=== PATIENT | female | born 1985 | race Caucasian/White ===

== ENCOUNTER 2017-07-14 06:40 | Emergency (ER) | payer MEDICAID, OTHER ==
[~2017-07-14] VITALS: Ht 160 cm; Wt 64.0 kg
[~2017-07-14 06:40] MED LIST: LORTA5 PO; PREN0.01 PO; ZOFR4TAB3 SL
[2017-07-14 06:44] VITALS: BP 129/63; PULSE 74; RESP 16; TEMP 97.9; O2SAT 100
--- NOTE | 2017-07-14 07:27 | PD ---
HPI Chief Complaint: Flank/Kidney Pain Time Seen by Provider: 07:24 Travel History International Travel<30 days: No Contact w/Intl Traveler<30days: No Traveled to known affect area: No History of Present Illness HPI 32-year-old female patient with history of UTI for the last week and a half, has had anthrax treatment including amoxicillin and Cipro which have not worked , and states that her primary care doctor had prescribed Bactrim but she has not yet taken it. She presents to the ER today because she is feeling worse, suprapubic discomfort, nausea, feels like is radiating to her left flank. She denies any fevers, vomiting, diarrhea, or other symptoms. Modifying Factors: None Associated Signs & Symptoms: Suprapubic discomfort, nausea, left flank pain Risk Factors: Recent UTIs PFSH Past Medical History Diabetes: No Diminished Hearing: No Reproductive: Yes (OVARIAN CYSTS) Immunizations Current: No ?: Not LMP: 12-9-17 : 6 Para: 3 Miscarriage: 1 : 1 Ovarian Cysts: Yes Dilation and Curettage (D&C): Yes Past Surgical History Genitourinary Surgery: Yes (4 ABORTIONS) Gynecologic Surgery: Yes (D&C-2006) Social History Alcohol Use: No Tobacco Use: No Substance Use: No Allergies-Medications (Allergen,Severity, Reaction): Coded Allergies: No Known Allergies (Verified Adverse Reaction, Unknown, 07/14/17) Reported Meds & Prescriptions Reported Meds & Active Scripts Active Review of Systems Except as stated in HPI: all other systems reviewed are Neg Physical Exam Narrative GENERAL: Well-developed young female patient currently in mild distress. Awake and oriented 3. SKIN: Focused skin assessment warm/dry. HEAD: Atraumatic. Normocephalic. EYES: Pupils equal and round. No scleral icterus. No injection or drainage. ENT: No nasal bleeding or discharge. Mucous membranes pink and moist. NECK: Trachea midline. No JVD. CARDIOVASCULAR: Regular rate and rhythm. No murmur appreciated. RESPIRATORY: No accessory muscle use. Clear to auscultation. Breath sounds equal bilaterally. GASTROINTESTINAL: Abdomen soft, mild suprapubic tenderness without guarding or rebound, nondistended. Hepatic and splenic margins not palpable. BACK: No CVA tenderness. No rash. No point tenderness on palpation of the spine. MUSCULOSKELETAL: No obvious deformities. No clubbing. No cyanosis. No edema. NEUROLOGICAL: Awake and alert. No obvious cranial nerve deficits. Motor grossly within normal limits. Normal speech. PSYCHIATRIC: Appropriate mood and affect; insight and judgment normal. Data Data Last Documented VS Vital Signs Date Time Temp Pulse Resp B/P (MAP) Pulse Ox O2 Delivery O2 Flow Rate FiO2 07/14/17 06:44 97.9 74 16 129/63 (85) 100 Orders Orders Urinalysis - C+S If Indicated (07/14/17 06:50) Ed Urine Pregnancytest Poc (07/14/17 07:24) Ct Abd/Pel W/O Iv Contrast (07/14/17 07:47) Labs Laboratory Tests Test 07/14/17 06:50 Urine Color LIGHT-YELLOW Urine Turbidity CLEAR Urine pH 5.0 Urine Specific [place] 1.012 Urine Protein NEG mg/dL Urine Glucose (UA) NEG mg/dL Urine Ketones NEG mg/dL Urine Occult Blood NEG Urine Nitrite NEG Urine Bilirubin NEG Urine Urobilinogen LESS THAN 2.0 MG/DL Urine Leukocyte Esterase NEG Urine WBC 1 /hpf Urine Squamous Epithelial Cells 1 /hpf Urine Mucus FEW /lpf Microscopic Urinalysis Comment CULT NOT INDICATED MDM Medical Decision Making Medical Screen Exam Complete: Yes Emergency Medical Condition: Yes Medical Record Reviewed: Yes Interpretation(s) Laboratory Tests Test 07/14/17 06:50 Urine Mucus FEW /lpf (OCC) Last 24 hours Impressions Abdomen/Pelvis CT 07/14/17 0828 Signed Impressions: Service Date/Time: July 08:30 - CONCLUSION: Chronic changes of L4-5 facet on the left otherwisotherwise unremarkable. lillian Carias MD Differential Diagnosis UTI versus pyelonephritis versus renal colic Narrative Course Abdomen is benign. CAT scan did not show any signs of acute intra-abdominal processes or kidney stones. UA did not show UTI. At this point, I suspect this is more likely to be a muscular flank discomfort. She does have some L4-5 left facet joints findings with could be causing some irritation. My plan would be to give her symptomatic relief or pain and follow-up with primary care doctor. Return for any worsening in pain or new symptoms as needed. The plan has been discussed with her and she states understanding. Diagnosis Primary Impression: Left flank pain Med/Other Pt SpecificInfo: Prescription(s) given Scripts Tramadol (Tramadol) 50 Mg Tab 50 MG PO Q6H Y for PAIN, #15 TAB 0 Refills Prov: Alcira Priest MD 07/14/17 Disposition: 01 DISCHARGE HOME Condition: Stable Alcira Pirest MD Jul 14, 2017 07:27
[2017-07-14 07:44] LABS: BILIRUBIN, URINE NEG (NEG); BLOOD, URINE NEG (NEG); GLUCOSE,URINE NEG (NEG); KETONE, URINE NEG (NEG); MUCUS URINE FEW /lpf (OCC); NITRITE,URINE NEG (NEG); SQUAMOUS EPITHELIAL CELL URINE 1 /hpf (0-5); URINE COLOR LIGHT-YELLOW (YELLW/STRAW); URINE LEUKOCYTE ESTERASE NEG (NEG)
--- NOTE | 2017-07-14 09:13 | RADRPT ---
EXAM DATE/TIME: 07/14/2017 08:30 [facility] COMPARISON: No previous studies available for comparison. INDICATIONS : Flank pain ORAL CONTRAST: No oral contrast ingested. RADIATION DOSE: 5.42 CTDIvol (mGy) MEDICAL HISTORY : None SURGICAL HISTORY : None. ENCOUNTER: Initial ACUITY: 4 - 6 days PAIN SCALE: 7/10 LOCATION: Left flank TECHNIQUE: Volumetric scanning of the abdomen and pelvis was performed. Using automated exposure control and ad justment of the mA and/or kV according to patient size, radiation dose was kept as low as reasonably achievable to obtain optimal diagnostic quality images. DICOM format image data is available electro nically for review and comparison. FINDINGS: CT Abdomen: The liver, spleen, pancreas, kidneys, adrenals are unremarkable. There is no evidence for any appreciable pathological adenopathy, free fluid, or bowel obstruction. There is no evidence for any stones in the kidneys or the course of the ureters on either side. There is no hydronephrosis. CT pelvis: There is no evidence for mass, abscess formation, or any significant adenopathy within the pelvis. There is facet arthrosis at L4-5 on the left side and what appears to be a tiny avulsed frac ture of superior articular process of L5 on the left side chronic in nature. CONCLUSION: Chronic changes of L4-5 facet on the left otherwisotherwise unremarkable. lillian Carias MD on July 14, 2017 at 9:01 Board Certified Radiologist. This report was verified electronically.
[2017-07-14] MEDS ORDERED: TRAM50TA PO (09:35)
[2017-07-14 09:50] VITALS: BP 124/78; TEMP 97.8
== END 2017-07-14 09:50 | disposition home or self-care (01) ==
LOC: NEPE 06:40
DX: R10.9 Unspecified abdominal pain (principal); R11.0 Nausea
CPT/HCPCS: 74176; 81001; 84703; 99284

== ENCOUNTER 2017-08-27 11:24 | Emergency (ER) | payer SELFPAY ==
[~2017-08-27] VITALS: Ht 160 cm; Wt 60.0 kg
[~2017-08-27 11:24] MED LIST changes: -LORTA5 PO; -PREN0.01 PO; +TRAM50TA PO; -ZOFR4TAB3 SL
[2017-08-27 11:26] VITALS: BP 116/62; PULSE 83; RESP 14; TEMP 98.4; O2SAT 98
[2017-08-27 12:08] LABS: AUTOMATED NEUTROPHIL # 7.2 TH/MM3 (1.8-7.7); BASOPHIL # 0.1 TH/MM3 (0-0.2); EOSINOPHIL # 0.2 TH/MM3 (0-0.4); EOSINOPHIL % 1.8 % (0.0-4.0); HEMATOCRIT 40.4 % (35.0-46.0); LYMPH % 18.6 % (9.0-44.0); LYMPHOCYTE # 1.9 TH/MM3 (1.0-4.8); MEAN CELL VOLUME 93.9 FL (80.0-100.0); MEAN CORPUSCULAR HEMOGLOBIN 32.7 PG (27.0-34.0); MEAN CORPUSCULAR HGB CONC 34.8 % (32.0-36.0); MEAN PLATELET VOLUME 9.1 FL (7.0-11.0); MONO % 9.1 % (0.0-8.0); MONOCYTE # 0.9 TH/MM3 (0-0.9); NEUT % 69.5 % (16.0-70.0); PLATELET COUNT 273 TH/MM3 (150-450); RED CELL DISTRIBUTION WIDTH 14.2 % (11.6-17.2); WHITE BLOOD COUNT 10.4 TH/MM3 (4.0-11.0)
[2017-08-27 12:19] LABS: AMORPHOUS SEDIMENT, URINE MOD; BILIRUBIN, URINE NEG (NEG); BLOOD, URINE NEG (NEG); GLUCOSE,URINE NEG (NEG); KETONE, URINE NEG (NEG); NITRITE,URINE NEG (NEG); PH, URINE 8.5 (5.0-8.5); SQUAMOUS EPITHELIAL CELL URINE 1 /hpf (0-5); URINE COLOR YELLOW (YELLW/STRAW); URINE LEUKOCYTE ESTERASE NEG (NEG)
[2017-08-27 12:53] LABS: ALBUMIN 3.7 GM/DL (3.4-5.0); ALT (GPT) 19 U/L (10-53); AST (GOT) 24 U/L (15-37); BICARBONATE 28.7 MEQ/L (21.0-32.0); BLOOD UREA NITROGEN 15 MG/DL (7-18); CALCIUM 8.4 MG/DL (8.5-10.1); CHLORIDE 105 MEQ/L (98-107); CREATININE 0.74 MG/DL (0.50-1.00); GLOMERULAR FILTRATION RATE 90 ML/MIN (>89); GLUCOSE,RANDOM 85 MG/DL (74-106); SODIUM (NA) 138 MEQ/L (136-145)
[2017-08-27 12:57] LABS: ALKALINE PHOSPHATASE 53 U/L (45-117); TOTAL BILIRUBIN ADULT 0.5 MG/DL (0.2-1.0); TOTAL PROTEIN 7.4 GM/DL (6.4-8.2)
--- NOTE | 2017-08-27 13:14 | PD ---
HPI Chief Complaint: Abdominal Pain Time Seen by Provider: 12:21 Travel History International Travel<30 days: No Contact w/Intl Traveler<30days: No Traveled to known affect area: No History of Present Illness HPI 32-year-old woman presents emergency frequent lower abdominal pain. She reports that she had a medical induced about 4 weeks ago, when she was about 5 weeks . She states since that time she has not felt well. She went back a week ago for routine follow-up. She was at the time having lower abdominal pain and cramping. She states that she was told that she was again with what they thought was a "new " they recommended that she return for repeat ultrasound. She had more pain and cramping. She had bleeding on and off. Following the medical she had some bleeding for 4 days or so but denies passing tissue or clots. She does endorse subjective chills, and some nausea. She is 6 para 4, 0, 1, for one previous in the more remote past, and the now. History Past Medical History Medical History: Denies Significant Hx LMP: 07/12/17 : 6 Para: 3 Dilation and Curettage (D&C): Yes Social History Alcohol Use: No Tobacco Use: No Allergies-Medications (Allergen,Severity, Reaction): Coded Allergies: No Known Allergies (Verified Adverse Reaction, Unknown, 07/14/17) Reported Meds & Prescriptions Reported Meds & Active Scripts Active No Active Prescriptions or Reported Medications Review of Systems Except as stated in HPI: all other systems reviewed are Neg Physical Exam Narrative GENERAL: Well-appearing 32-year-old woman, no acute distress. SKIN: Focused skin assessment warm/dry. NECK: Trachea midline. No JVD. CARDIOVASCULAR: Regular rate and rhythm. No murmur appreciated. RESPIRATORY: No accessory muscle use. Clear to auscultation. Breath sounds equal bilaterally. GASTROINTESTINAL: Abdomen soft, non-tender, nondistended. Hepatic and splenic margins not palpable. MUSCULOSKELETAL: No obvious deformities. No clubbing. No cyanosis. No edema. NEUROLOGICAL: Awake and alert. No obvious cranial nerve deficits. Motor grossly within normal limits. Normal speech. Data Data Last Documented VS Vital Signs Date Time Temp Pulse Resp B/P (MAP) Pulse Ox O2 Delivery O2 Flow Rate FiO2 08/27/17 11:26 98.4 83 14 116/62 (80) 98 Orders Orders Complete Blood Count With Diff (08/27/17 11:36) Comprehensive Metabolic Panel (08/27/17 11:36) Urinalysis - C+S If Indicated (08/27/17 11:36) Ed Urine Pregnancytest Poc (08/27/17 11:36) Iv Access Insert/Monitor (08/27/17 11:36) Oxygen Administration (08/27/17 11:36) Oximetry (08/27/17 11:36) Lipase (08/27/17 11:36) Beta Hcg (Quant/Titer) (08/27/17 11:36) Us Pelvis (Ques Pr/Ect)W Trans (08/27/17 ) Labs Laboratory Tests Test 08/27/17 11:40 08/27/17 11:47 Urine Color YELLOW Urine Turbidity CLOUDY Urine pH 8.5 Urine Specific [place] 1.021 Urine Protein TRACE mg/dL Urine Glucose (UA) NEG mg/dL Urine Ketones NEG mg/dL Urine Occult Blood NEG Urine Nitrite NEG Urine Bilirubin NEG Urine Urobilinogen LESS THAN 2.0 MG/DL Urine Leukocyte Esterase NEG Urine Squamous Epithelial Cells 1 /hpf Urine Amorphous Sediment MOD Microscopic Urinalysis Comment CULT NOT INDICATED White Blood Count 10.4 TH/MM3 Red Blood Count 4.30 MIL/MM3 Hemoglobin 14.0 GM/DL Hematocrit 40.4 % Mean Corpuscular Volume 93.9 FL Mean Corpuscular Hemoglobin 32.7 PG Mean Corpuscular Hemoglobin Concent 34.8 % Red Cell Distribution Width 14.2 % Platelet Count 273 TH/MM3 Mean Platelet Volume 9.1 FL Neutrophils (%) (Auto) 69.5 % Lymphocytes (%) (Auto) 18.6 % Monocytes (%) (Auto) 9.1 % Eosinophils (%) (Auto) 1.8 % Basophils (%) (Auto) 1.0 % Neutrophils # (Auto) 7.2 TH/MM3 Lymphocytes # (Auto) 1.9 TH/MM3 Monocytes # (Auto) 0.9 TH/MM3 Eosinophils # (Auto) 0.2 TH/MM3 Basophils # (Auto) 0.1 TH/MM3 CBC Comment DIFF FINAL Differential Comment Blood Urea Nitrogen 15 MG/DL Creatinine 0.74 MG/DL Random Glucose 85 MG/DL Total Protein 7.4 GM/DL Albumin 3.7 GM/DL Calcium Level 8.4 MG/DL Alkaline Phosphatase 53 U/L Aspartate Amino Transf (AST/SGOT) 24 U/L Alanine Aminotransferase (ALT/SGPT) 19 U/L Total Bilirubin 0.5 MG/DL Sodium Level 138 MEQ/L Potassium Level 4.3 MEQ/L Chloride Level 105 MEQ/L Carbon Dioxide Level 28.7 MEQ/L Anion Gap 4 MEQ/L Estimat Glomerular Filtration Rate 90 ML/MIN Lipase 168 U/L Human Chorionic Gonadotropin, Quant 86 MIU/ML [facility] Medical Decision Making Medical Screen Exam Complete: Yes Emergency Medical Condition: Yes Interpretation(s) LABS: CBC is unremarkable. CMP is unremarkable. HCG 86 Lipase 168 UA is unremarkable. Pelvic ultrasound: Possible retained products of conception. Differential Diagnosis Retained products of conception, early , incomplete AB, infection, other Narrative Course Medical decision making 32-year-old woman presents with lower abdominal pain, some subjective chills, nausea, following a medical . I do not believe that she got again following her . She may have some retained products of conception. Will recheck ultrasound, hCG, pelvic exam, reassess. FINAL: Spoke with OB hospitalist. R recommend close outpatient follow-up. Agrees with antibiotics. Diagnosis Primary Impression: Retained products of conception following Additional Instructions: Take antibiotics as prescribed. Take Naprosyn as needed for pain. Follow-up with your OB doctor in the next 1 week. Return to the emergency department for any new or worsening symptoms. Med/Other Pt SpecificInfo: Prescription(s) given Scripts Naproxen (Naproxen) 500 Mg Tab 500 MG PO BID for 7 Days, #14 TAB 0 Refills Prov: Marcell Phillips MD 08/27/17 Amoxicillin-Clavulanate (Augmentin) 500-125 mg Tab 500 MG PO BID for Infection for 7 Days, TAB 0 Refills Prov: Marcell Phillips MD 08/27/17 Disposition: 01 DISCHARGE HOME Condition: Stable Marcell Phillips MD Aug 27, 2017 13:14
--- NOTE | 2017-08-27 14:23 | RADRPT ---
EXAM DATE/TIME: 08/27/2017 13:03 [facility] COMPARISON: No previous studies available for comparison. INDICATIONS : Pelvic pain. , 5 weeks ago. LAB(S): Beta-hC MEDICAL HISTORY : Ovarian cysts. Recent pill , 5 weeks ago. SURGICAL HISTORY : D&C. Tummy tuck. ENCOUNTER: Initial ACUITY: 3 days PAIN SCORE: 4/10 LOCATION: Bilateral pelvis MEASUREMENTS: UTERUS: 9.8 x 5.5 x 4.6 cm ENDOMETRIAL STRIPE: 8 mm RIGHT OVARY: 3.4 x 2.7 x 2.4 cm cm LEFT OVARY: 4.5 x 3.7 x 3.8 cm cm FREE FLUID: No CROWN RUMP LENGTH: Not visualized. = WKS DAYS FHR: Not visualized. BPM FINDINGS: UTERUS: No definite gestational sac demonstrated. There is a complex hypoechoic structure in the fundus measu ring 1.8 x 1.1 x 1.3 cm. Small cyst near the lower uterine segment measuring 9 x 7 x 7 mm. RIGHT OVARY: Simple 1.5 x 1.5 x 1.3 cm cyst. Otherwise, unremarkable. LEFT OVARY: Slightly complex anechoic avascular cyst containing a thin septation measuring 4.0 x 3.1 x 3.3 cm. MISCELLANEOUS: No free fluid. CONCLUSION: 1. No intrauterine gestational sac demonstrated. 2. There is a complex hypoechoic structure near the fundus measuring 1.8 x 1.1 x 1.3 cm which may ref lect retained products or focal hematoma. 3. Small bilateral ovarian cysts, slightly complex on the left but within simple cyst criteria. Vidal Arteaga MD on August 27, 2017 at 14:15 Board Certified Radiologist. This report was verified electronically.
[2017-08-27] MEDS ORDERED: NAPR500T2 PO (15:09)
[2017-08-27] MEDS ORDERED: AUGM500T7 PO (15:09)
[2017-08-27] MEDS ORDERED: AMOXICILLIN/CLAVULANATE K 875 MG TAB PO ONE (15:15)
== END 2017-08-27 15:24 | disposition home or self-care (01) ==
LOC: NEPD 11:24
DX: O03.4 Incomplete spontaneous abortion without complication (principal); O34.81 Maternal care for other abnormalities of pelvic organs, first trimester; N83.202 Unspecified ovarian cyst, left side
CPT/HCPCS: 76700; 76817; 80053; 81001; 83690; 84702; 85025

== ENCOUNTER 2017-10-12 08:04 | Emergency (ER) | payer OTHER ==
[~2017-10-12] VITALS: Ht 160 cm; Wt 60.0 kg
[~2017-10-12 08:04] MED LIST changes: +AUGM500T7 PO; +NAPR500T2 PO; -TRAM50TA PO
[2017-10-12 08:14] VITALS: BP 109/55; PULSE 108; RESP 18; TEMP 99.7
[2017-10-12] MEDS ORDERED: TYLE325T PO (08:34)
[2017-10-12] MEDS ORDERED: DIPH1POW6 PO (08:34)
[2017-10-12] MEDS ORDERED: IBUP1TAB5 PO (08:34)
--- NOTE | 2017-10-12 09:00 | PD ---
HPI Chief Complaint: Cold / Flu Symptoms Time Seen by Provider: 08:37 Travel History International Travel<30 days: No Contact w/Intl Traveler<30days: No Traveled to known affect area: No History of Present Illness HPI The patient was seen and examined in the presence of the nurse. This patient complains of cough and congestion and fever and chest discomfort. She has central chest pain when she coughs. Symptoms are not exertional. She had a temperature of 101 at home. She has some nasal congestion. No vomiting or diarrhea or abdominal pain or urinary complaints. Symptom severity is moderate. Duration 3 days. No alleviating factors. Coughing aggravates her chest discomfort. PFSH Past Medical History Anemia: Yes Heart Rhythm Problems: Yes Diabetes: No Diminished Hearing: No Reproductive: Yes (OVARIAN CYSTS) Immunizations Current: No ?: Unknown LMP: september 2017 : 6 Para: 3 Miscarriage: 1 : 4 Ovarian Cysts: Yes Dilation and Curettage (D&C): Yes Past Surgical History Genitourinary Surgery: Yes (4 ABORTIONS) Gynecologic Surgery: Yes (D&C-2006) Other Surgery: Yes (tummy tuck ) Social History Alcohol Use: No Tobacco Use: No Substance Use: No Allergies-Medications (Allergen,Severity, Reaction): Coded Allergies: No Known Allergies (Verified Adverse Reaction, Unknown, 10/12/17) Reported Meds & Prescriptions Reported Meds & Active Scripts Active Reported Ibuprofen 400 Mg Tab 800 Mg PO Q6H PRN Theraflu Nt Severe Cld-Cgh Pkt (Diphenhydra/Phenyleph/Acetamin) 25 Mg-10 Mg-650 Mg Powd.pack PO Q6HR PRN Tylenol (Acetaminophen) 325 Mg Tab 400 Mg PO Q4H PRN Review of Systems General / Constitutional: Positive: Fever Eyes: No: Visual changes HENT: Positive: Rhinorrhea, Congestion, No: Headaches Cardiovascular: Positive: Chest Pain or Discomfort Respiratory: Positive: Cough, No: Shortness of Breath Gastrointestinal: No: Abdominal Pain Genitourinary: No: Dysuria Musculoskeletal: No: Pain Skin: No Rash Neurologic: No: Weakness Psychiatric: No: Depression Endocrine: No: Polydipsia Hematologic/Lymphatic: No: Easy Bruising Physical Exam Narrative GENERAL: Well-nourished, well-developed patient with cough and congestion . SKIN: Focused skin assessment reveals no rash and nodules. Skin is Warm and dry. HEAD: Atraumatic. Normocephalic. EYES: Pupils equal and round. No scleral icterus. No injection or drainage. ENT: No nasal bleeding or discharge. Mucous membranes pink and moist. NECK: Trachea midline. No JVD. CARDIOVASCULAR: Regular rate and rhythm. No murmur appreciated. RESPIRATORY: No accessory muscle use. Clear to auscultation. Breath sounds equal bilaterally. GASTROINTESTINAL: Abdomen soft, non-tender, nondistended. Hepatic and splenic margins not palpable. MUSCULOSKELETAL: No obvious deformities. No clubbing. No cyanosis. No edema. NEUROLOGICAL: Awake and alert. No obvious cranial nerve deficits. Motor grossly within normal limits. Normal speech. PSYCHIATRIC: Appropriate mood and affect; insight and judgment normal. Data Data Last Documented VS Vital Signs Date Time Temp Pulse Resp B/P (MAP) Pulse Ox O2 Delivery O2 Flow Rate FiO2 10/12/17 09:36 100.1 93 13 109/67 (81) 97 Orders Orders Electrocardiogram (10/12/17 ) Chief Controller Station / Telemetry [id number] (10/12/17 08:51) Chest, Single Ap (10/12/17 ) Influenzae A/B Antigen (10/12/17 09:00) MDM Medical Decision Making Medical Screen Exam Complete: Yes Emergency Medical Condition: Yes Medical Record Reviewed: Yes Differential Diagnosis Pneumonia, bronchitis, costochondritis Narrative Course I have reviewed the patient's electronic medical record. Patient was seen here for retained products of conception 2 months ago I reviewed her EKG which is normal I reviewed her chest x-ray shows no consolidation Extended cardiac monitoring shows sinus rhythm without ectopy Influenza swab is positive for influenza A Supportive care discussed. Stable for outpatient follow-up Diagnosis Primary Impression: Influenza A Additional Impression: Musculoskeletal chest pain Additional Instructions: The patient was advised to follow up with their physician and return if they worsen. Med/Other Pt SpecificInfo: Other Disposition: DISCHARGE HOME Condition: Stable Christopher Luke MD Oct 12, 2017 09:00
[2017-10-12 09:36] VITALS: BP 109/67; PULSE 93; RESP 13; TEMP 100.1; O2SAT 97
--- NOTE | 2017-10-12 10:10 | RADRPT ---
EXAM DATE/TIME: 10/12/2017 09:26 [facility] COMPARISON: No previous studies available for comparison. INDICATIONS : Chest pain and short of breath. MEDICAL HISTORY : Ovarian cysts. Recent pill , 5 weeks ago. SURGICAL HISTORY : D&C. Hakeem brown. ENCOUNTER: Initial ACUITY: 2 days PAIN SCORE: 2/10 LOCATION: Bilateral chest FINDINGS: A single view of the chest demonstrates the lungs to be symmetrically aerated without evidence of mas s, infiltrate or effusion. The cardiomediastinal contours are unremarkable. Osseous structures are intact. CONCLUSION: 1. No acute cardiopulmonary findings. Gary Vasquez MD on October 12, 2017 at 10:08 Board Certified Radiologist. This report was verified electronically.
--- NOTE | 2017-10-12 13:05 | EKG ---
Date Performed: 10/12/2017 Time Performed: 09:08:35 PTAGE: 32 years EKG: Sinus rhythm NORMAL ECG NO PREVIOUS TRACING DOCTOR: Marcell Olsen Interpretating Date/Time 10/12/2017 13:02:35
== END 2017-10-12 10:12 | disposition home or self-care (01) ==
LOC: NEPC 08:04
DX: J10.1 Influenza due to other identified influenza virus with other respiratory manifestations (principal); R07.89 Other chest pain
CPT/HCPCS: 71045; 87804; 93005